=== PATIENT | male | born 1975 | race Caucasian/White ===

== ENCOUNTER 2017-07-23 23:28 | Emergency (ER) | payer BC ==
[~2017-07-23] VITALS: Ht 188 cm; Wt 90.8 kg
[2017-07-23 23:33] VITALS: TEMP 37; Ht 188 cm; Wt 90.8 kg
[2017-07-23] MEDS ORDERED: KETOROLAC TROMETHAMINE 30 MG/ML VIAL IV STA (23:46)
[2017-07-23] MEDS ORDERED: SODIUM CHLORIDE 0.9% 1000ML 1,000 ML IV STA (23:46)
--- NOTE | 2017-07-23 23:54 | EMERGENCY ROOM VISIT NOTE ---
History Report prepared by Ariane: Mike Hurst Under the Supervision of: Dr. Litzy Harris D.O. First contact with patient: 23:30 Chief Complaint: ABDOMINAL PAIN Stated Complaint: ABD PAIN Nursing Triage Summary: Pt presents als for evaluaiton of sudden onset RLQ abdominal pain starting approx 2 hours ago. Pt c/o abdominal pain radiating to back as well as groin, as well as n/v. Had BM earlier today. History of Present Illness The patient is a 42 year old male who presents to the Emergency Room with complaints of constant, right lower quadrant abdominal pain beginning one hour ago. The patient states his onset was sudden and radiates to his back and testicles. He reports his pain started with cramps and chills. The patient notes it then escalated to gas, and he vomited twice. He states he has not eaten much today because he was in the [employer] hunting. The patient denies vomit in blood, changes in bowel movements, urinary symptoms, change in diet, trauma while hunting, current nausea, and recent sickness. He reports 4 Zofran and 4 Morphine helped his discomfort. The patient notes he has never had a kidney stone, and he drinks two cups of coffee a day. He states he does not know if he has a family history of kidney stones. The patient reports he has a history of an appendectomy. He notes he used to take Lisinopril for hypertension, but he no longer takes it because it caused him to cramp. Source of History: patient Onset: one hours ago Position: abdomen (RLQ) Quality: other (gas) Timing: constant Modifying Factors (Relieving): other (Zofran and Morphine) Associated Symptoms: + chills, + vomiting, + back pain, No nausea Note: Associated symptoms: testicular pain Denies: vomit in blood, changes in bowel movements, urinary symptoms, change in diet, trauma while hunting, and recent sickness Review of Systems See HPI for pertinent positives & negatives. A total of 10 systems reviewed and were otherwise negative. Past Medical & Surgical Medical Problems: (1) HTN (hypertension) Surgical Problems: (1) History of appendectomy Family History Patient reports no known family medical history. Social History Smoking Status: Never Smoker Marital Status: Occupation Status: employed Current/Historical Medications Scheduled Ondansetron Odt (Zofran Odt), 8 MG SL Q8 Scheduled PRN Oxycodone/Acetaminophen 5MG/325MG (Percocet 5MG/325MG), 1 TAB PO Q6 PRN for Pain Allergies Coded Allergies: No Known Allergies (Unverified , 07/23/17) Physical Exam Vital Signs Date Time Temp Pulse Resp B/P (MAP) Pulse Ox O2 Delivery O2 Flow Rate FiO2 07/24/17 01:26 66 18 127/71 99 Room Air 07/23/17 23:47 63 07/23/17 23:33 37.0 64 18 139/112 99 Room Air Physical Exam GENERAL: alert, well appearing, well nourished, no distress, non-toxic EYE EXAM: normal conjunctiva, PERRL and EOM's grossly intact OROPHARYNX: no exudate, no erythema, lips, buccal mucosa, and tongue normal and mucous membranes are moist NECK: supple, no nuchal rigidity, no adenopathy, non-tender LUNGS: Clear to auscultation. Normal chest wall mechanics HEART: no murmurs, S1 normal and S2 normal ABDOMEN: abdomen soft, right lower quadrant is tender to palpation, normo- active bowel sounds, no masses, no rebound or guarding. BACK: Back is symmetrical on inspection and there is no deformity, no midline tenderness, no CVA tenderness. SKIN: no rashes and no bruising UPPER EXTREMITIES: upper extremities are grossly normal. LOWER EXTREMITIES: No pitting edema. NEURO EXAM: Normal sensorium, cranial nerves II-XII grossly intact, normal speech, no gross weakness of arms, no gross weakness of legs. Medical Decision & Procedures ER Provider Diagnostic Interpretation: CT:Per my review, radiologist interpretation. CT ABDOMEN AND PELVIS Without Contrast. 1mm calculus at the right ureterovesical junction causing mild hydroureteronephrosis. Righty intrarenal stones. Radiologist: Diego Ramirez MD Study ready at 0046 and initial results transmitted at 0107. Laboratory Results 07/23/17 22:55 Red Blood Count 4.96, Mean Corpuscular Volume 92.5, Mean Corpuscular Hemoglobin 32.3, Mean Corpuscular Hemoglobin Concent 34.9, Mean Platelet Volume 11.0, Neutrophils (%) (Auto) 56.5, Lymphocytes (%) (Auto) 33.6, Monocytes (%) (Auto) 6.8, Eosinophils (%) (Auto) 2.5, Basophils (%) (Auto) 0.5, Neutrophils # (Auto) 5.42, Lymphocytes # (Auto) 3.23, Monocytes # (Auto) 0.65, Eosinophils # (Auto) 0.24, Basophils # (Auto) 0.05 07/23/17 22:55 Test 07/23/17 22:55 07/24/17 00:40 White Blood Count 9.60 K/uL (4.8-10.8) Red Blood Count 4.96 M/uL (4.7-6.1) Hemoglobin 16.0 g/dL (14.0-18.0) Hematocrit 45.9 % (42-52) Mean Corpuscular Volume 92.5 fL (80-100) Mean Corpuscular Hemoglobin 32.3 pg (25-34) Mean Corpuscular Hemoglobin Concent 34.9 g/dl (32-36) Platelet Count 225 K/uL (130-400) Mean Platelet Volume 11.0 fL (7.4-10.4) Neutrophils (%) (Auto) 56.5 % Lymphocytes (%) (Auto) 33.6 % Monocytes (%) (Auto) 6.8 % Eosinophils (%) (Auto) 2.5 % Basophils (%) (Auto) 0.5 % Neutrophils # (Auto) 5.42 K/uL (1.4-6.5) Lymphocytes # (Auto) 3.23 K/uL (1.2-3.4) Monocytes # (Auto) 0.65 K/uL (0.11-0.59) Eosinophils # (Auto) 0.24 K/uL (0-0.5) Basophils # (Auto) 0.05 K/uL (0-0.2) RDW Standard Deviation 43.9 fL (36.4-46.3) RDW Coefficient of Variation 13.0 % (11.5-14.5) Immature Granulocyte % (Auto) 0.1 % Immature Granulocyte # (Auto) 0.01 K/uL (0.00-0.02) Anion Gap 11.0 mmol/L (3-11) Est Creatinine Clear Calc Drug Dose 75.4 ml/min Estimated GFR () 66.1 Estimated GFR (Non- 57.0 BUN/Creatinine Ratio 12.8 (10-20) Calcium Level 9.1 mg/dl (8.5-10.1) Total Bilirubin 0.7 mg/dl (0.2-1) Aspartate Amino Transf (AST/SGOT) 22 U/L (15-37) Alanine Aminotransferase (ALT/SGPT) 29 U/L (12-78) Alkaline Phosphatase 60 U/L (45-117) Total Protein 7.7 gm/dl (6.4-8.2) Albumin 4.5 gm/dl (3.4-5.0) Globulin 3.2 gm/dl (2.5-4.0) Albumin/Globulin Ratio 1.4 (0.9-2) Urine Color YELLOW Urine Appearance CLEAR (CLEAR) Urine pH 5.5 (4.5-7.5) Urine Specific [place] 1.021 (1.000-1.030) Urine Protein TRACE (NEG) Urine Glucose (UA) NEG (NEG) Urine Ketones TRACE (NEG) Urine Occult Blood 3+ (NEG) Urine Nitrite NEG (NEG) Urine Bilirubin NEG (NEG) Urine Urobilinogen NEG (NEG) Urine Leukocyte Esterase NEG (NEG) Urine WBC (Auto) 1-5 /hpf (0-5) Urine RBC (Auto) >30 /hpf (0-4) Urine Hyaline Casts (Auto) 1-5 /lpf (0-5) Urine Epithelial Cells (Auto) 5-10 /lpf (0-5) Urine Bacteria (Auto) NEG (NEG) Laboratory results per my review. Medications Administered Medications (Trade) Dose Ordered Sig/Ira Route Start Time Stop Time Status Last Admin Dose Admin Sodium Chloride 1,000 ml @ 999 mls/hr Q1H1M STAT IV 07/23/17 23:46 07/24/17 00:46 DC 07/23/17 23:57 999 MLS/HR Ketorolac Tromethamine (Toradol Inj) 30 mg NOW STAT IV 07/23/17 23:46 07/23/17 23:48 DC 07/23/17 23:58 30 MG ED Course 2339: The patient was evaluated in room B4B. A complete history and physical exam was performed. 2346: Ordered Ketorolac Tromethamine 30mg IV, Sodium Chloride 1000 ml @ 999 mls/ hr IV 0051: I reevaluated the patient. He no longer has discomfort. I discussed current exam findings with him. 0128: Upon reevaluation, the patient is feeling better and still symptoms free. I discussed the findings and the treatment plan with the patient. He verbalizes agreement and understanding. The patient was discharged home. Medical Decision Differential diagnoses includes but is not limited to gastritis, peptic ulcer disease, GERD, gallbladder disease, pancreatitis, small bowel obstruction, acute coronary syndrome, pericarditis, ischemic bowel, irritable bowel disease, irritable bowel syndrome, appendicitis, diverticulitis, malignancy, hernia, urinary tract infection, torsion, perforation, trauma, infectious. Patient well-appearing here following medications. Discussed with patient all lab and imaging results. Discussed follow-up with family doctor, adequate hydration with water, use of medications, symptoms to watch and return for, he verbalized understanding was agreeable with plan. Patient made aware of mild renal insufficiency and discussed recheck with family doctor likely related to passage of stone. No other evidence of infection. No evidence of bacteremia/ sepsis. Patient with no vomiting here. Afebrile. Vital signs stable. Impression Primary Impression: Ureterolithiasis Additional Impressions: Hematuria Renal insufficiency Abdominal pain Scribe Attestation The scribe's documentation has been prepared under my direction and personally reviewed by me in its entirety. I confirm that the note above accurately reflects all work, treatment, procedures, and medical decision making performed by me. Departure Information Dispostion Home / Self-Care Prescriptions Oxycodone/Acetaminophen 5MG/325MG (PERCOCET 5MG/325MG) Tab 1 TAB PO Q6 Y for Pain, #10 TAB Prov: Litzy Harris, DO 07/24/17 Ondansetron Odt (ZOFRAN ODT) 8 Mg Tab 8 MG SL Q8 for Nausea, #10 TAB Prov: Litzy Harris, DO 07/24/17 Referrals No Doctor, Assigned (PCP) Forms Call Back Authorization, HOME CARE DOCUMENTATION FORM, IMPORTANT VISIT INFORMATION Patient Instructions My [facility] Additional Instructions Please drink more water. You may use the medications as needed. Do not take the stronger medication and drive or drink alcohol. If you have any worsening pain, notice blood in your urine, develop vomiting, fevers, or you have any other new or concerning symptoms, please return to the emergency room. Problem Qualifiers Additional Impressions: Hematuria Hematuria type: unspecified type Qualified Codes: R31.9 - Hematuria, unspecified Abdominal pain Abdominal location: right lower quadrant Qualified Codes: R10.31 - Right lower quadrant pain
[2017-07-24 00:23] LABS: BASO % 0.5 %; BASO ABS # 0.05 K/uL (0-0.2); COMPLETE YES; EOS % 2.5 %; HEMATOCRIT 45.9 % (42-52); IG% 0.1 %; LYMPH % 33.6 %; LYMPH ABS # 3.23 K/uL (1.2-3.4); MEAN CELL VOLUME 92.5 fL (80-100); MEAN CORPUSCULAR HEMOGLOBIN 32.3 pg (25-34); MEAN CORPUSCULAR HGB CONC 34.9 g/dl (32-36); MONO % 6.8 %; NEUT % 56.5 %; PLATELET COUNT 225 K/uL (130-400); RED BLOOD COUNT 4.96 M/uL (4.7-6.1)
[2017-07-24 00:30] LABS: BUN/CREATININE RATIO 12.8 (10-20); CALCIUM 9.1 mg/dl (8.5-10.1); CREATININE 1.5 mg/dl (0.60-1.40); POTASSIUM 3.1 mmol/L (3.5-5.1)
[2017-07-24 00:33] LABS: ALB/GLOB RATIO 1.4 (0.9-2)
[2017-07-24 00:51] LABS: URINE APPEARANCE CLEAR (CLEAR); URINE BILIRUBIN NEG (NEG); URINE COLOR YELLOW; URINE NITRITE NEG (NEG); URINE PH 5.5 (4.5-7.5); URINE SPECIFIC GRAVITY 1.021 (1.000-1.030); UROBILINOGEN NEG (NEG); ZZUR CULT IF INDIC CLEAN CATCH NO
[2017-07-24 00:58] LABS: MANUAL MICROSCOPIC REQUIRED? NO; REVIEW REQ? NO
[2017-07-24 01:26] VITALS: BP 127/71; PULSE 66; O2SAT 99
[2017-07-24] MEDS ORDERED: OXYC-57 PO (01:37)
[2017-07-24] MEDS ORDERED: ONDA8TAB13 SL (01:37)
--- NOTE | 2017-07-24 07:34 | DIAGNOSTIC IMAGING REPORT ---
ABD/PELVIS WITHOUT FOR STONE CLINICAL HISTORY: 42 years-old Male presenting with right flank/rlq pain. TECHNIQUE: Multidetector CT of the abdomen and pelvis was performed without the use of intravenous contrast. IV contrast: None. A dose lowering technique was used consistent with the principles of ALARA (as low as reasonably achievable). COMPARISON: None. CT DOSE (mGy.cm): The estimated cumulative dose is 971.28 mGy.cm. FINDINGS: Business Coordinator topogram: Unremarkable. Lung bases: Minimal dependent changes likely atelectasis. Normal heart size. No pericardial or pleural effusion. Liver: Normal morphology. Normal density. Biliary: No gross biliary ductal dilatation allowing for noncontrast technique. Normal gallbladder. Pancreas: Normal noncontrast appearance. Spleen: Normal noncontrast appearance. Adrenal glands: Normal noncontrast appearance. Kidneys and ureters: Right perinephric fat stranding, asymmetric to the left. Mild right pelvocaliectasis and mild right hydroureter. Periureteral fat stranding. Nonobstructing punctate calculus in the interpolar region of the right kidney. Obstructing 1 to 2 mm calculus at the right ureterovesical junction. No left nephrolithiasis. Left ureter normal. Bladder: Normal. No bladder calculi. Pelvic organs: Prostate and seminal vesicles normal. Bowel: Normal. No bowel obstruction. Peritoneal cavity: No free fluid or intraperitoneal gas. Lymph nodes: No gross lymphadenopathy allowing for noncontrast technique. Vasculature: Normal noncontrast appearance. Abdominal wall: Normal. Musculoskeletal: Normal. IMPRESSION: 1. Obstructing 1 to 2 mm calculus at the right ureterovesical junction with resultant mild right hydroureteronephrosis. Additional nonobstructing punctate calculus in the right kidney. Electronically signed by: Yariel Hernandez M.D. 07/24/2017 7:32 AM Dictated Date/Time: 07/24/2017 7:00 AM
[2017-07-25] MEDS ORDERED: ONDANSETRON INJ 2 MG/ML 2 ML VIAL ONE (21:41)
== END 2017-07-24 01:48 | disposition home or self-care (01) ==
LOC: EDBD 23:28 → C.EDB 23:29
DX: N20.1 Calculus of ureter (principal); R31.9 Hematuria, unspecified; N28.9 Disorder of kidney and ureter, unspecified; R10.31 Right lower quadrant pain; R11.10 Vomiting, unspecified; I10 Essential (primary) hypertension; Z90.89 Acquired absence of other organs